=== PATIENT | male | born 1930 | race Hispanic/Latino ===

== ENCOUNTER → 2020-05-11 | Outpatient (CLI) | payer MEDICARE, OTHER ==
--- NOTE | 2020-05-11 11:42 | Diagnostic Imaging Report ---
EXAM: Renal Ultrasound INDICATION: ^[id number] ^[id number] COMPARISON: KUB of the same day TECHNIQUE: Transverse and longitudinal images of the kidneys and bladder were obtained. FINDINGS: Right Kidney: Length: 9.9 cm Appearance: Normal echogenicity. Collecting system: No hydronephrosis Stones: None Cyst/Mass: Right upper pole anechoic simple cyst measures up to 4.9 x 4.4 x 4.1 cm. Left Kidney: Length: 11.2 cm Appearance: Normal echogenicity. Collecting system: No hydronephrosis Stones: None Cyst/Mass: Left upper pole anechoic simple cyst measures up to 1.1 x 0.9 x 1.0 cm. Bladder: No mass or calculi. Bilateral ureteral jets visualized. Prevoid volume estimate of 103 cc. The prostate measures 4.1 x 3.2 x 3.7 cm with a volume estimate of 25 cc. IMPRESSION: No hydronephrosis or renal calculi. Bilateral simple renal cysts. Signed by: Geovanny Brewster MD on 05/11/2020 11:39 AM
--- NOTE | 2020-05-11 11:44 | Diagnostic Imaging Report ---
Exam: KUB - 2 views Indication: ^[id number] ^[id number] ^Other disorders of urinary system Comparison: Renal ultrasound of the same day Findings: No radiographically apparent urinary calculi. Nonobstructive bowel gas pattern. No free air. No acute osseous injury. Scattered degenerative changes of the visualized spine and both hip joints. Impression: No radiographically apparent urinary calculi. Signed by: Geovanny Brewster MD on 05/11/2020 11:40 AM
== END ==
LOC: US 10:05
PROVIDERS: ATTEND Urology
DX: N39.0 Urinary tract infection, site not specified (principal)
CPT/HCPCS: 74018; 76770

== ENCOUNTER 2020-09-12 06:16 | Inpatient (IN) | payer MEDICARE, OTHER ==
[2020-09-10 09:53] LABS: BASOPHILS # (AUTO) 0.1 (0.0-0.1); BASOPHILS % 0.7 % (0.0-1.0); EOSINOPHILS # (AUTO) 0.4 (0.0-0.4); EOSINOPHILS % 4.8 % (0.0-6.0); HEMOGLOBIN 15.7 g/dL (14.0-18.0); LYMPHOCYTES # (AUTO) 2.7 (1.0-3.2); LYMPHOCYTES % 31.4 % (18.0-39.1); MEAN CORPUSCULAR HEMOGLOBIN 31.1 pg (28-32); MEAN CORPUSCULAR HGB CONC 31.4 g/dL (31-35); MONOCYTES # (AUTO) 0.6 (0.2-0.8); MONOCYTES % 6.6 % (4.4-11.3); NEUTROPHILS # (AUTO) 4.9 (2.1-6.9); NEUTROPHILS % 56.3 % (38.7-80.0); PLATELET COUNT 137 x10e3/uL (140-360); RED BLOOD COUNT 5.05 x10e6/uL (4.3-5.7); RED CELL DISTRIBUTION WIDTH 12.9 % (11.7-14.4)
[2020-09-10 10:13] LABS: ALBUMIN 3.4 g/dL (3.5-5.0); ALBUMIN/GLOBULIN RATIO 0.9 (0.8-2.0); ANION GAP 11.4 mmol/L (8-16); CALCIUM 8.8 mg/dL (8.4-10.2); CREATININE, SERUM 1.52 mg/dL (0.72-1.25); POTASSIUM 4.4 mmol/L (3.5-5.1)
[2020-09-10 10:22] LABS: INR 0.95; PROTHROMBIN TIME 13.2 seconds (11.9-14.5)
[2020-09-10 10:23] LABS: PARTIAL THROMBOPLASTIN TIME 31.5 seconds (23.8-35.5)
[~2020-09-12] VITALS: Ht 170.2 cm; Wt 93.9 kg
[~2020-09-12 06:16] MED LIST: ALLOPURINOL100 MG PO; ASPIRIN81 MG PO; FLOMAX0.4 MG PO; FUROSEMIDE40 MG PO; MONTELUKAST SOD10 MG PO; MULTI-VITAMIN1 EACH PO; OMEGA 3 FISH O1 EACH PO; SIMVASTATIN40 MG PO; SODIUM BICARBO650 MG PO
[2020-09-12] MEDS ORDERED: GENTAMICIN 80MG/NS 100 ML 200 ML IV ONE (06:50)
[2020-09-12] MEDS ORDERED: MEROPENEM 1GM 100 ML IV ONE (06:51)
[2020-09-12] MEDS ORDERED: B&O 60MG R/S 60 MG SUPP PR ONE (07:49)
[2020-09-12] MEDS ORDERED: IOPAMIDOL 300MG/ML 50ML INFUS..BTL IV ONE (07:49)
[2020-09-12] MEDS ORDERED: B&O 60MG R/S 60 MG SUPP PR PRN (10:00)
[2020-09-12] MEDS ORDERED: CEFTRIAXONE SOD 1 GM/50 ML BAG IV SCH (10:00)
[2020-09-12] MEDS ORDERED: ONDANSETRON HCL INJ 2MG/ML 2ML 2 MG/ML VIAL IV PRN (10:00)
[2020-09-12] MEDS ORDERED: DIPHENHYDRAMINE HCL 25 MG CAP PO PRN (10:00)
[2020-09-12] MEDS ORDERED: ACETAMINOPHEN/CODEINE 300MG - 30MG TAB PO PRN (10:00)
[2020-09-12 10:58] LABS: BASOPHILS # (AUTO) 0.1 (0.0-0.1); BASOPHILS % 0.5 % (0.0-1.0); EOSINOPHILS # (AUTO) 0.1 (0.0-0.4); EOSINOPHILS % 1.4 % (0.0-6.0); HEMATOCRIT 47.4 % (38.2-49.6); HEMOGLOBIN 14.8 g/dL (14.0-18.0); LYMPHOCYTES # (AUTO) 2.2 (1.0-3.2); LYMPHOCYTES % 22.9 % (18.0-39.1); MEAN CORPUSCULAR HEMOGLOBIN 30.5 pg (28-32); MEAN CORPUSCULAR HGB CONC 31.2 g/dL (31-35); MEAN CORPUSCULAR VOLUME 97.5 fL (81-99); MONOCYTES # (AUTO) 0.3 (0.2-0.8); MONOCYTES % 2.9 % (4.4-11.3); NEUTROPHILS % 71.8 % (38.7-80.0); PLATELET COUNT 125 x10e3/uL (140-360); RED BLOOD COUNT 4.86 x10e6/uL (4.3-5.7); RED CELL DISTRIBUTION WIDTH 12.8 % (11.7-14.4)
[2020-09-12 11:14] LABS: ANION GAP 14.8 mmol/L (8-16); CALCIUM 8.4 mg/dL (8.4-10.2); CREATININE, SERUM 1.59 mg/dL (0.72-1.25); POTASSIUM 4.8 mmol/L (3.5-5.1)
[2020-09-12 11:23] VITALS: BP 117/56
[2020-09-12 11:26] VITALS: BP 117/56
[2020-09-12] MEDS: D5.45%NS/KCL 20MEQ 1,000 ML IV SCH ×2 (12:00→23:29)
[2020-09-12] MEDS ORDERED: PROPOFOL IV EMULSION 10 MG/ML 20 ML VIAL ONE (12:45)
[2020-09-12] MEDS ORDERED: LIDOCAINE HCL 2% LOCAL INJ 5 ML SDV VIAL INJ ONE (12:45)
[2020-09-12] MEDS ORDERED: ONDANSETRON HCL INJ 2MG/ML 2ML 2 MG/ML VIAL ONE (12:45)
[2020-09-12] MEDS ORDERED: DEXAMETHASONE SOD PHOS INJ 4 MG/ML VIAL ONE (12:45)
[2020-09-12] MEDS ORDERED: SEVOFLURANE INHAL SOLN 250 ML PEN BTL ONE (12:45)
[2020-09-12] MEDS ORDERED: EPHEDRINE SULFATE INJ 50 MG/ML VIAL ONE (12:45)
[2020-09-12] MEDS ORDERED: FENTANYL CITRATE/PF 100MCG/2 ML INJ ONE (12:55)
[2020-09-12 15:22] VITALS: BP 142/72
[2020-09-12] MEDS: DOCUSATE SODIUM 100 MG CAP PO SCH (16:57)
[2020-09-12] MEDS: CEFTRIAXONE SOD 1 GM in SODIUM CHLORIDE 0.9% 50ML 50 ML IV SCH (17:31)
[2020-09-12 20:17] VITALS: BP 133/72
[2020-09-12 21:00] VITALS: BP 133/72
[2020-09-13] VITALS (8 sets, daily range): BP systolic 97–123; BP diastolic 55–98
[2020-09-13 05:18] LABS: BASOPHILS # (AUTO) 0.1 (0.0-0.1); BASOPHILS % 0.3 % (0.0-1.0); EOSINOPHILS % 0.1 % (0.0-6.0); HEMATOCRIT 43.2 % (38.2-49.6); HEMOGLOBIN 13.9 g/dL (14.0-18.0); LYMPHOCYTES # (AUTO) 1.4 (1.0-3.2); LYMPHOCYTES % 9.5 % (18.0-39.1); MEAN CORPUSCULAR HEMOGLOBIN 30.6 pg (28-32); MEAN CORPUSCULAR HGB CONC 32.2 g/dL (31-35); MEAN CORPUSCULAR VOLUME 95.2 fL (81-99); MONOCYTES # (AUTO) 0.9 (0.2-0.8); MONOCYTES % 6.1 % (4.4-11.3); NEUTROPHILS # (AUTO) 12.3 (2.1-6.9); NEUTROPHILS % 83.5 % (38.7-80.0); PLATELET COUNT 124 x10e3/uL (140-360); RED BLOOD COUNT 4.54 x10e6/uL (4.3-5.7); RED CELL DISTRIBUTION WIDTH 12.4 % (11.7-14.4)
[2020-09-13 06:28] LABS: ANION GAP 11.7 mmol/L (8-16); CREATININE, SERUM 1.62 mg/dL (0.72-1.25)
[2020-09-13 06:29] LABS: POTASSIUM 5.7 mmol/L (3.5-5.1)
[2020-09-13] MEDS: DOCUSATE SODIUM 100 MG CAP PO SCH ×2 (08:21→16:39)
[2020-09-13] MEDS: SODIUM CHLORIDE 0.9% 1000ML 1,000 ML IV SCH ×2 (08:21→21:20)
[2020-09-13] MEDS ORDERED: SOD POLYSTYRENE SULFONATE SUSP 15 GM/60 ML BTL PO ONE (09:00)
[2020-09-13] MEDS ORDERED: FUROSEMIDE INJ 10 MG/ML 2 ML VIAL IV ONE (09:00)
[2020-09-13] MEDS: MULTIVITAMINS/MINERALS TAB PO SCH (10:22)
[2020-09-13] MEDS: SODIUM BICARBONATE 650 MG TAB PO SCH ×2 (10:22→16:40)
[2020-09-13] MEDS: ALLOPURINOL 100 MG TAB PO SCH (10:22)
[2020-09-13] MEDS ORDERED: ONDANSETRON HCL 4 MG ORAL DISINTEGRATING TAB PO PRN (10:30)
[2020-09-13] MEDS: TAMSULOSIN HCL 0.4 MG CAP PO SCH (16:39)
[2020-09-13] MEDS: CEFTRIAXONE SOD 1 GM in SODIUM CHLORIDE 0.9% 50ML 50 ML IV SCH (17:11)
[2020-09-13] MEDS: SIMVASTATIN 40 MG TAB PO SCH (21:00)
[2020-09-13] MEDS: MONTELUKAST SODIUM 10 MG TAB PO SCH (21:00)
[2020-09-14] VITALS (7 sets, daily range): BP systolic 114–151; BP diastolic 63–77
[2020-09-14 05:07] LABS: BASOPHILS # (AUTO) 0.1 (0.0-0.1); BASOPHILS % 0.7 % (0.0-1.0); EOSINOPHILS # (AUTO) 0.8 (0.0-0.4); EOSINOPHILS % 7.9 % (0.0-6.0); HEMATOCRIT 42.9 % (38.2-49.6); HEMOGLOBIN 13.7 g/dL (14.0-18.0); LYMPHOCYTES # (AUTO) 2.6 (1.0-3.2); LYMPHOCYTES % 24.2 % (18.0-39.1); MEAN CORPUSCULAR HEMOGLOBIN 30.6 pg (28-32); MEAN CORPUSCULAR HGB CONC 31.9 g/dL (31-35); MEAN CORPUSCULAR VOLUME 95.8 fL (81-99); MONOCYTES # (AUTO) 0.8 (0.2-0.8); MONOCYTES % 7.1 % (4.4-11.3); NEUTROPHILS # (AUTO) 6.4 (2.1-6.9); NEUTROPHILS % 59.6 % (38.7-80.0); PLATELET COUNT 115 x10e3/uL (140-360); RED BLOOD COUNT 4.48 x10e6/uL (4.3-5.7); RED CELL DISTRIBUTION WIDTH 12.9 % (11.7-14.4)
[2020-09-14 05:26] LABS: ANION GAP 11.3 mmol/L (8-16); CALCIUM 7.8 mg/dL (8.4-10.2); CREATININE, SERUM 1.56 mg/dL (0.72-1.25); POTASSIUM 4.3 mmol/L (3.5-5.1)
[2020-09-14] MEDS: DOCUSATE SODIUM 100 MG CAP PO SCH ×2 (09:24→17:43)
[2020-09-14] MEDS: ALLOPURINOL 100 MG TAB PO SCH (09:25)
[2020-09-14] MEDS: SODIUM BICARBONATE 650 MG TAB PO SCH ×2 (09:25→17:43)
[2020-09-14] MEDS: MULTIVITAMINS/MINERALS TAB PO SCH (09:25)
[2020-09-14] MEDS: TAMSULOSIN HCL 0.4 MG CAP PO SCH (17:43)
[2020-09-14] MEDS: CEFTRIAXONE SOD 1 GM in SODIUM CHLORIDE 0.9% 50ML 50 ML IV SCH (17:46)
[2020-09-14] MEDS ORDERED: LEVOFLOXACIN250 MG PO (20:35)
[2020-09-14] MEDS ORDERED: TYLENOL # 31 EA PO (20:35)
[2020-09-14] MEDS: MONTELUKAST SODIUM 10 MG TAB PO SCH (21:02)
[2020-09-14] MEDS: SIMVASTATIN 40 MG TAB PO SCH (21:02)
== END 2020-09-14 22:06 | disposition home or self-care (01) | DRG 714 ==
LOC: OR 06:16 → PACU V 09:58 → MED/SURG 11:07
PROVIDERS: ADMIT Internal Medicine; ATTEND Internal Medicine
PROC: BT141ZZ Fluoroscopy of Kidneys, Ureters and Bladder using Low Osmolar Contrast (ICD-10-PCS; 2020-09-12)
PROC: 0T7D8ZZ Dilation of Urethra, Via Natural or Artificial Opening Endoscopic (ICD-10-PCS; principal; 2020-09-12 08:00)
PROC: 0V508ZZ Destruction of Prostate, Via Natural or Artificial Opening Endoscopic (ICD-10-PCS; 2020-09-12 08:00)
DX: N40.1 Benign prostatic hyperplasia with lower urinary tract symptoms (principal); R33.8 Other retention of urine; N18.30 Chronic kidney disease, stage 3 unspecified; I12.9 Hypertensive chronic kidney disease with stage 1 through stage 4 chronic kidney disease, or unspecified chronic kidney disease; Z87.442 Personal history of urinary calculi; E78.5 Hyperlipidemia, unspecified; K21.9 Gastro-esophageal reflux disease without esophagitis; Z20.822 Contact with and (suspected) exposure to COVID-19; E88.09 Other disorders of plasma-protein metabolism, not elsewhere classified; D69.6 Thrombocytopenia, unspecified; R91.8 Other nonspecific abnormal finding of lung field; J98.4 Other disorders of lung; N32.81 Overactive bladder; N35.812 Other bulbous urethral stricture, male
CPT/HCPCS: 36415; 71046; 74420; 80048; 80053; 83735; 85025; 85610; 85730; 93005; 99251; C1758; J0696; J1100; J1580; J1940; J2001; J2405; J3010; J7030; U0002

== ENCOUNTER 2020-09-29 13:33 | Emergency (ER) | payer MEDICARE, OTHER ==
[~2020-09-29] VITALS: Ht 175.3 cm; Wt 93.0 kg
[~2020-09-29 13:33] MED LIST changes: +LEVOFLOXACIN250 MG PO; +TYLENOL # 31 EA PO
[2020-09-29] MEDS ORDERED: CEFUROXIME250 MG PO (14:30)
[2020-09-29] MEDS ORDERED: ONDANSETRON ODT4 MG PO (14:36)
[2020-09-29] MEDS ORDERED: TYLENOL # 31 EA PO (14:36)
== END 2020-09-29 14:56 | disposition home or self-care (01) ==
LOC: FSED 13:43
DX: R30.0 Dysuria (principal); N39.0 Urinary tract infection, site not specified; N41.9 Inflammatory disease of prostate, unspecified; I12.0 Hypertensive chronic kidney disease with stage 5 chronic kidney disease or end stage renal disease; N18.6 End stage renal disease; E78.5 Hyperlipidemia, unspecified
CPT/HCPCS: 81003; 87086; 87186; 99283